=== PATIENT | male | born 2000 | race Caucasian/White ===

== ENCOUNTER 2019-11-03 21:52 | Emergency (ER) | payer OTHER ==
[~2019-11-03] VITALS: Ht 185.4 cm; Wt 83.9 kg
[2019-11-03] MEDS ORDERED: ONDANSETRON HCL 4 MG ORAL DISINTEGRATING TAB PO ONE (22:00)
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
[2019-11-03 23:37] VITALS: BP 124/76
[2019-11-03] MEDS ORDERED: TRAMADOL HCL 50 MG TAB ONE (23:48)
[2019-11-04] MEDS ORDERED: TRAMADOL HCL 50 MG TAB PO ONE (00:01)
== END 2019-11-04 00:45 | disposition home or self-care (01) ==
LOC: ER 21:52
DX: S06.0X1A Concussion with loss of consciousness of 30 minutes or less, initial encounter (principal); S00.83XA Contusion of other part of head, initial encounter; S00.81XA Abrasion of other part of head, initial encounter; V39.3XXA Occupant (driver) (passenger) of three-wheeled motor vehicle injured in unspecified nontraffic accident, initial encounter; Y92.410 Unspecified street and highway as the place of occurrence of the external cause
CPT/HCPCS: 70450; 70486; 72125; 99283; Q0162